=== PATIENT | male | born 1950 | race Caucasian/White ===

== ENCOUNTER 2022-08-27 14:35 | Emergency (ER) | payer MEDICARE, SELFPAY ==
[2022-08-27 14:46] VITALS: BP 178/89; PULSE 51; RESP 20; O2SAT 96; BMI 28.7
[2022-08-27 15:00] VITALS: BP 164/84; PULSE 52; RESP 20; O2SAT 94
--- NOTE | 2022-08-27 15:03 | ED_ITS ---
HPI - Chest Pain General Chief Complaint: Chest Pain Stated Complaint: Thinks he might be having a heart attack Time Seen by Provider: 08/27/22 14:44 History of Present Illness HPI narrative: This 72-year-old male comes in reporting chest pain that began last night and again this morning. He was clearing some [place] thorn last evening and began to have chest pain with exertion. The chest pain was dull and was relieved after resting. He again had chest pain this morning when doing some light to moderate activity. He did have some associated nausea but no vomiting, no lightheadedness, no shortness of breath, and no diaphoresis. Prior to this he has been in good health but has not seen a doctor for a long time. He states that he was on a blood pressure medicine years ago but he quit taking it because it made him cough frequently. He thinks that he probably does have hypertension that is not treated. He denies having any history of smoking or hyperlipidemia. He states that his brother earlier this year from a heart attack. He typically takes a baby aspirin every night. This morning he took 2 baby aspirin. Related Data Previous Rx's Medication Instructions Recorded isosorbide mononitrate 10 mg tablet 10 mg PO BID #60 tabs 08/27/22 Allergies Allergy/AdvReac Type Severity Reaction Status Date / Time No Known Drug Allergies Allergy Verified 08/27/22 14:46 Review of Systems Status of ROS Reports: 10 or more systems reviewed and unremarkable except as noted in History and below Narrative Constitutional: No fevers, no weight gain or loss. Eyes: No discharge. No vision changes. HENT: No congestion, no sore throat, no ear pain. Cardiovascular: No palpitations. Chest pain as described above. Respiratory: No shortness of breath, no wheezes, no cough. Gastrointestinal: No abdominal pain, no vomiting, no diarrhea. Genitourinary: No dysuria, no hematuria. Musculoskeletal: Normal range of motion. Skin: No rashes, no pruritis. Neurological: No dizziness, weakness, sensory change, speech change. Endo/Heme/Allergies: No bruising or bleeding. No polydipsia. Pysch: no suicidality, no anxiety, no insomnia. All other systems reviewed and are negative. PFSH PFSH Social History Smoking Status: Former smoker What tobacco products do you use: cigarettes Years smoked: 20 Smoking quit date/years: >15 years ago Do you use any of these nicotine containing products: Smokeless Tobacco Second hand tobacco smoke exposure: No Non-prescribed substance use: denies use Exam Narrative Exam Narrative: Constitutional: Well-developed, well-nourished, no acute distress. HEENT: Normocephalic, atraumatic. Neck: Normal range of motion. Nontender. Supple. Heart: Regular. No murmurs. Normal rate. Intact distal pulses. Lungs: Clear to auscultation. No chest discomfort. No wheezes, rhonchi, or rales. Abdomen: Normal bowel sounds. Nontender. No rebound tenderness. Genitalia: Deferred. Back: No midline tenderness. Normal range of motion. Extremities: Normal range of motion. No injury. Skin: Intact. No rash. Warm. No erythema or pallor. Neurologic: No altered sensation. No weakness. Alert and oriented. Psychiatric: No suicidality. No anxiety or depression. No insomnia. Nursing notes and vitals signs are reviewed. Const Vital Signs, click to edit/add: Vital Signs - 24 hr 08/27/22 14:46 08/27/22 15:00 Pulse Rate [Left Apical] 51 L 52 L Respiratory Rate 20 20 Blood Pressure [Left Upper Arm] 178/89 H 164/84 H Pulse Oximetry 96 94 Oxygen Delivery Method Room Air Room Air Course Vital Signs Vital signs: Initial Vital Signs Temperature Source Temporal Artery Scan 08/27/22 14:46 Pulse Rate 51 L 08/27/22 14:46 Pulse Rhythm 08/27/22 14:46 Respiratory Rate 20 08/27/22 14:46 Blood Pressure 178/89 H 08/27/22 14:46 Blood Pressure Mean 118 08/27/22 14:46 Pulse Oximetry 96 08/27/22 14:46 Oxygen Delivery Method 08/27/22 14:46 Vital Signs Pulse Rate 51 L 08/27/22 14:46 Respiratory Rate 20 08/27/22 14:46 Blood Pressure 178/89 H 08/27/22 14:46 Pulse Oximetry 96 08/27/22 14:46 Oxygen Delivery Method 08/27/22 14:46 Pulse Rate 52 L 08/27/22 15:00 Respiratory Rate 20 08/27/22 15:00 Blood Pressure 164/84 H 08/27/22 15:00 Pulse Oximetry 94 08/27/22 15:00 Oxygen Delivery Method 08/27/22 15:00 MDM - Chest Pain MDM Narrative Medical decision making narrative: This 72-year-old male comes in with his because of 3 episodes of chest pain that were occurring with respect to [id number] exertion. The chest pain resolved completely when he discontinued these activities. His story is suspicious for coronary artery disease. His EKG and lab results today returned with normal findings. The patient did take 2 baby aspirin this morning any received another 2 baby aspirin here. He is okay to return home but is strongly advised to have a stress echo done soon. I did place an order for this to occur and prescribed Imdur 10 mg b.i.d.. I also advised him to take a full-strength aspirin daily for now. He is encouraged to stay active but if there is any symptoms of angina he should adjust his activity accordingly. Lab Data Labs: Lab Results 08/27/22 08/27/22 08/27/22 Range/Units 14:50 14:50 14:50 WBC 6.39 (4.50-11.00) K/uL RBC 5.57 (4.30-5.90) m/uL Hgb 16.1 (13.5-17.5) gm/dL Hct 49.1 (37.0-53.0) % MCV 88 (80-100) fL MCH 29 (26-34) pg MCHC 33 (32-36) gm/dL RDW Coeff of [place] 12.8 (11.5-15.5) % Plt Count 218 (140-440) K/uL Neut % (Auto) 61.0 (42.0-72.0) % Lymph % (Auto) 25.2 (20-44) % Harding % (Auto) 9.4 (0.0-11.0) % Eos % (Auto) 3.0 (0.0-7.0) % Baso % (Auto) 0.8 (0.0-3.0) % Neut # (Auto) 3.90 (1.7-7.0) K/uL Lymph # (Auto) 1.61 (0.90-2.90) K/uL Harding # (Auto) 0.60 (0.00-0.90) K/UL Eos # (Auto) 0.19 (0.00-0.50) K/uL Baso # (Auto) 0.05 (0.00-0.30) K/uL Abs Immat Gran (auto) 0.04 (0.00-0.30) K/uL Sodium 141 (135-149) mmol/L Potassium 4.1 (3.6-5.1) mmol/L Chloride 105 (96-114) mmol/L Carbon Dioxide 26 (20-32) mmol/L BUN 14 (7-30) mg/dL Creatinine 0.7 (0.5-1.5) mg/dL Estimated Creat Clear 67.93 Estimated GFR 97 ml/min Glucose 80 (60-115) mg/dL Calcium 9.0 (8.4-10.6) mg/dL POC Troponin I 0.00 L (0.01-0.04) ng/ml ECG Data Attestation: I personally reviewed and interpreted this ECG as follows: Interpretation: Sinus bradycardia, rate 55 beats per minute. There are no specific ST or T-wave abnormalities. Discharge Plan Discharge Clinical Impression: Stable angina Patient Disposition: Home, Self-Care Condition: Improved Additional Instructions: Activity as tolerated. Take a full-strength aspirin daily. Take Imdur as prescribed. Follow up this week with stress echocardiogram. Return if worsening. Prescriptions: New isosorbide mononitrate 10 mg tablet 10 mg PO BID Qty: 60 2RF Rx Instructions: give doses 7 hrs apart Follow Up/Referrals: Nguyễn Chowdary MD [Primary Care Provider] - Stand Alone Forms: [employer] Info Instructions
[2022-08-27] MEDS: ASPIRIN 81 MG TAB.CHEW 162 MG PO (15:11)
[2022-08-27 15:13] LABS: Basophils Absolute Auto 0.05 K/uL (0.00-0.30); Basophils Percent Auto 0.8 % (0.0-3.0); Eosinophils Absolute Auto 0.19 K/uL (0.00-0.50); Hematocrit 49.1 % (37.0-53.0); Hemoglobin* 16.1 gm/dL (13.5-17.5); Immature Granulocytes Abs Auto 0.04 K/uL (0.00-0.30); Lymphocytes Absolute Auto 1.61 K/uL (0.90-2.90); Lymphocytes Percent Auto 25.2 % (20-44); Mean Corpuscular HGB Conc 33 gm/dL (32-36); Mean Corpuscular Hemoglobin 29 pg (26-34); Mean Corpuscular Volume 88 fL (80-100); Monocytes Percent Auto 9.4 % (0.0-11.0); Platelet Count* 218 K/uL (140-440); RDW Coefficient of Variation % 12.8 % (11.5-15.5); Red Blood Count 5.57 m/uL (4.30-5.90); White Blood Count* 6.39 K/uL (4.50-11.00)
[2022-08-27 15:14] LABS: Slide Review Reflex No
[2022-08-27 15:24] LABS: Chloride* 105 mmol/L (96-114); Potassium* 4.1 mmol/L (3.6-5.1); Sodium* 141 mmol/L (135-149)
[2022-08-27 15:27] LABS: Carbon Dioxide* 26 mmol/L (20-32); Creatinine* 0.7 mg/dL (0.5-1.5); Est. Creatinine Clearance* 67.93; Estimated Glomerular Filt Rate 97 ml/min
[2022-08-27 15:28] LABS: Blood Urea Nitrogen* 14 mg/dL (7-30); Glucose* 80 mg/dL (60-115)
[2022-08-27 15:30] VITALS: BP 138/66; PULSE 45; RESP 18; O2SAT 95
[2022-08-27 16:00] VITALS: BP 151/79; PULSE 51; RESP 18; O2SAT 97
== END 2022-08-27 16:26 | disposition home or self-care (01) ==
PROVIDERS: Emergency Provider Emergency Medicine Emergency Medical Services; PCP Family Medicine
DX: I20.8 Other forms of angina pectoris (principal)
CPT/HCPCS: 36415; 80048; 85025; 93005; 99284; 99285; A9270

== ENCOUNTER 2022-08-29 06:07 | Emergency (ER) | payer MEDICARE, SELFPAY ==
[2022-08-29] VITALS (30 sets, daily range): BP systolic 133–181; BP diastolic 72–102; PULSE 44–60; RESP 18; TEMP 36.6; O2SAT 94–100
--- NOTE | 2022-08-29 06:39 | ED_ITS ---
HPI - Chest Pain General Chief Complaint: Chest Pain Stated Complaint: Chest pain Time Seen by Provider: 08/29/22 06:08 Source: patient and family Mode of arrival: ambulatory Limitations: no limitations History of Present Illness HPI narrative: decision to transfer 0632 72 y/o male presents with chest pain at rest. see emergency notes from 08/27. At that time, patient was evaluated in the emergency department for chest pain on exertion while [place]. At that time, pain was improving with rest. He was appropriately evaluated in the emergency department. No EKG changes, normal troponins noted. He was discharged with a prescription to start on Imdur and have a follow-up stress echo. 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 Yesterday, he began having intermittent chest pain at rest, nonradiating. Accompanied by a mild feeling of dizziness unwell but no dyspnea on exertion. No syncope. Patient states that the pain has become more constant now and presents to the emergency department again this morning. He has not been taking the Imdur but did take 5 baby aspirin this morning. He does typically take 1 aspirin every night. He has never had stents, bypass surgery, no prior stress test. He does not have a history of hypertension or hyperlipidemia. He takes no prescription medications. Does have a significant family history of coronary artery disease in his brother at age 36. None in his parents or other sibling. He also is a former smoker but quit 15 years ago. No excessive use of alcohol. Past medical history benign, no major long-term health problems. No prior surgeries. No prescription medications, no allergies. Socially nonsmoker, but former smoker. No excessive alcohol, no pertinent travel. Family history notable for coronary artery disease as stated above. Related Data Previous Rx's Medication Instructions Recorded isosorbide mononitrate 10 mg tablet 10 mg PO BID #60 tabs 08/27/22 Allergies Allergy/AdvReac Type Severity Reaction Status Date / Time No Known Drug Allergies Allergy Verified 08/27/22 14:46 PFSH PFS Social History Smoking Status: Former smoker What tobacco products do you use: cigarettes Years smoked: 20 Smoking quit date/years: >15 years ago Do you use any of these nicotine containing products: Smokeless Tobacco Second hand tobacco smoke exposure: No Non-prescribed substance use: denies use Exam Const Vital Signs, click to edit/add: Vital Signs - 24 hr 08/29/22 06:14 08/29/22 06:40 08/29/22 06:26 Temperature 97.8 F Pulse Rate 46 L Pulse Rate [Left Pulse Oximeter] 49 L Respiratory Rate 18 Blood Pressure Blood Pressure [Right Upper Arm] 181/92 H Pulse Oximetry 96 96 99 08/29/22 06:30 08/29/22 06:33 08/29/22 06:45 Temperature Pulse Rate 50 L 60 48 L Pulse Rate [Left Pulse Oximeter] Respiratory Rate Blood Pressure 169/75 H Blood Pressure [Right Upper Arm] Pulse Oximetry 99 100 94 08/29/22 06:47 08/29/22 07:00 08/29/22 07:03 Temperature Pulse Rate 56 L 48 L 47 L Pulse Rate [Left Pulse Oximeter] Respiratory Rate Blood Pressure 133/102 H 157/74 H Blood Pressure [Right Upper Arm] Pulse Oximetry 95 95 95 08/29/22 07:15 08/29/22 07:17 08/29/22 07:30 Temperature Pulse Rate 46 L 52 L 47 L Pulse Rate [Left Pulse Oximeter] Respiratory Rate Blood Pressure 157/79 H Blood Pressure [Right Upper Arm] Pulse Oximetry 96 95 95 08/29/22 07:32 08/29/22 07:45 08/29/22 07:47 Temperature Pulse Rate 51 L 48 L 46 L Pulse Rate [Left Pulse Oximeter] Respiratory Rate Blood Pressure 166/78 H 173/80 H Blood Pressure [Right Upper Arm] Pulse Oximetry 97 96 96 08/29/22 08:00 08/29/22 08:02 08/29/22 08:15 Temperature Pulse Rate 46 L 45 L 45 L Pulse Rate [Left Pulse Oximeter] Respiratory Rate Blood Pressure 165/75 H Blood Pressure [Right Upper Arm] Pulse Oximetry 96 96 96 08/29/22 08:17 08/29/22 08:18 08/29/22 08:30 Temperature Pulse Rate 47 L 44 L 47 L Pulse Rate [Left Pulse Oximeter] Respiratory Rate Blood Pressure 168/79 H Blood Pressure [Right Upper Arm] Pulse Oximetry 96 96 96 08/29/22 08:32 08/29/22 08:45 08/29/22 08:47 Temperature Pulse Rate 47 L 48 L 48 L Pulse Rate [Left Pulse Oximeter] Respiratory Rate Blood Pressure 163/72 H 156/72 H Blood Pressure [Right Upper Arm] Pulse Oximetry 96 96 96 08/29/22 09:00 08/29/22 09:02 08/29/22 09:15 Temperature Pulse Rate 48 L 47 L 49 L Pulse Rate [Left Pulse Oximeter] Respiratory Rate Blood Pressure 165/78 H Blood Pressure [Right Upper Arm] Pulse Oximetry 97 96 97 08/29/22 09:17 08/29/22 09:30 08/29/22 09:32 Temperature Pulse Rate 46 L 49 L 49 L Pulse Rate [Left Pulse Oximeter] Respiratory Rate Blood Pressure 164/81 H 168/79 H Blood Pressure [Right Upper Arm] Pulse Oximetry 96 97 97 Documenting provider has reviewed patient's vital signs: yes Common normals: no apparent distress and alert General appearance: cooperative, comfortable and well kempt Orientation/consciousness: Yes awake HENMT Common normals: normocephalic Head and scalp: normocephalic Mouth: oral and palatal mucosa normal Throat: posterior oropharynx normal Eye Common normals: conjunctivae normal and no scleral icterus General eye: normal appearance of both eyes Conjunctiva: conjunctiva(e) normal Neck & C-Spine Common normals: full ROM and thyroid normal Thyroid: thyroid normal Resp Common normals: normal respiratory effort and clear to auscultation bilaterally Effort & inspection: able to speak in complete sentences Auscultation: clear to auscultation bilaterally Cardio Common normals: regular rate, regular rhythm, S1 normal heart sound, S2 normal heart sound, no murmurs and peripheral pulses 2+ throughout Rate: regular rate Rhythm: regular rhythm Heart sounds: S1 normal and S2 normal Peripheral pulses: pulses 2+ throughout GI Common normals: Normal to inspection, nondistended, normoactive bowel sounds present, soft to palpation, non-tender and no hepatosplenomegaly Palpation: soft and no hepatosplenomegaly Back & Pelvis Common normals: thoracic and lumbar spine normal to inspection Extremity Common normals: normal capillary refill and no clubbing, cyanosis or edema Neuro Sensorium/orientation: awake and alert Speech: speech normal Gait (neuro): normal gait Motor exam: strength 5/5 throughout, no tremor noted and no movement abnormalities noted Psych Appearance: well kempt Attitude: engaged Activity/motor behavior: appropriate eye contact Mood and affect: euthymic mood Insight: insight good Judgement: judgment good Skin Common normals: no rashes or lesions noted General skin exam: no rashes or lesions noted Course Vital Signs Vital signs: Initial Vital Signs Temperature 97.8 F 08/29/22 06:14 Temperature Source Temporal Artery Scan 08/29/22 06:14 Pulse Rate 49 L 08/29/22 06:14 Pulse Rhythm 08/29/22 06:14 Respiratory Rate 18 08/29/22 06:14 Blood Pressure 181/92 H 08/29/22 06:14 Blood Pressure Mean 121 08/29/22 06:14 Blood Pressure Position Sitting 08/29/22 06:14 Pulse Oximetry 96 08/29/22 06:14 Vital Signs Temperature 97.8 F 08/29/22 06:14 Pulse Rate 49 L 08/29/22 06:14 Respiratory Rate 18 08/29/22 06:14 Blood Pressure 181/92 H 08/29/22 06:14 Pulse Oximetry 96 08/29/22 06:14 Temperature 97.8 F 08/29/22 06:14 Pulse Rate 49 L 08/29/22 09:32 Respiratory Rate 18 08/29/22 06:14 Blood Pressure 168/79 H 08/29/22 09:32 Pulse Oximetry 97 08/29/22 09:32 MDM - Chest Pain MDM Narrative Medical decision making narrative: EKG viewed on arrival. On an comes back as I am examining patient, noted to be elevated at 0.18. The patient's story has evolved from stable angina to unstable angina and with positive troponins, I do believe he is having a non- STEMI. I discussed transfer with patient immediately and have begun making called for transfer. Thus far, [facility] has put on weight loss. I have called [facility]. We are wait listed as well. Thus far, I have spent 37 minutes attempting to transfer to 2 facilities. This is the reason for his transfer delay. Of [facility], Dr. Toledo, has recommended beginning heparin drip and nitroglycerin drip. When I went to reassess the patient and discuss these 2 interventions, his chest pain has at the moment resolved. We will place a 2nd IV and have a nitroglycerin drip ready to go in case his chest pain returns. As stated, he has already had his aspirin I will not re-dose this. Dr. Toledo is not recommending additional Plavix or statins at this time. Blood pressures are remaining stable. Awaiting callback for transfer. Lab Data Labs: Lab Results 08/29/22 08/29/22 08/29/22 Range/Units 06:20 06:20 06:20 WBC 8.03 (4.50-11.00) K/uL RBC 6.09 H (4.30-5.90) m/uL Hgb 17.6 H (13.5-17.5) gm/dL Hct 53.6 H (37.0-53.0) % MCV 88 (80-100) fL MCH 29 (26-34) pg MCHC 33 (32-36) gm/dL RDW Coeff of [place]oul[place] 12.8 (11.5-15.5) % Plt Count 238 (140-440) K/uL Neut % (Auto) 62.6 (42.0-72.0) % Lymph % (Auto) 25.0 (20-44) % Jackson % (Auto) 9.7 (0.0-11.0) % Eos % (Auto) 2.1 (0.0-7.0) % Baso % (Auto) 0.5 (0.0-3.0) % Neut # (Auto) 5.02 (1.7-7.0) K/uL Lymph # (Auto) 2.01 (0.90-2.90) K/uL Jackson # (Auto) 0.80 (0.00-0.90) K/UL Eos # (Auto) 0.17 (0.00-0.50) K/uL Baso # (Auto) 0.04 (0.00-0.30) K/uL Abs Immat Gran (auto) 0.01 (0.00-0.30) K/uL INR (0.91-1.10) APTT (23-33) Seconds Sodium 140 (135-149) mmol/L Potassium 4.4 (3.6-5.1) mmol/L Chloride 105 (96-114) mmol/L Carbon Dioxide 28 (20-32) mmol/L BUN 18 (7-30) mg/dL Creatinine 0.9 (0.5-1.5) mg/dL Estimated GFR 90 ml/min Glucose 110 (60-115) mg/dL Calcium 9.1 (8.4-10.6) mg/dL Troponin I 0.33 H* (0.01-0.04) ng/mL NT-Pro-B Natriuret Pep 117 (0-125) PG/mL SARS-CoV-2 (PCR) (Negative) POC Troponin I 0.18 H (0.01-0.04) ng/ml 08/29/22 08/29/22 Range/Units 06:20 06:47 WBC (4.50-11.00) K/uL RBC (4.30-5.90) m/uL Hgb (13.5-17.5) gm/dL Hct (37.0-53.0) % MCV (80-100) fL MCH (26-34) pg MCHC (32-36) gm/dL RDW Coeff of [place] (11.5-15.5) % Plt Count (140-440) K/uL Neut % (Auto) (42.0-72.0) % Lymph % (Auto) (20-44) % Jackson % (Auto) (0.0-11.0) % Eos % (Auto) (0.0-7.0) % Baso % (Auto) (0.0-3.0) % Neut # (Auto) (1.7-7.0) K/uL Lymph # (Auto) (0.90-2.90) K/uL Jackson # (Auto) (0.00-0.90) K/UL Eos # (Auto) (0.00-0.50) K/uL Baso # (Auto) (0.00-0.30) K/uL Abs Immat Gran (auto) (0.00-0.30) K/uL INR 0.98 (0.91-1.10) APTT 29 (23-33) Seconds Sodium (135-149) mmol/L Potassium (3.6-5.1) mmol/L Chloride (96-114) mmol/L Carbon Dioxide (20-32) mmol/L BUN (7-30) mg/dL Creatinine (0.5-1.5) mg/dL Estimated GFR ml/min Glucose (60-115) mg/dL Calcium (8.4-10.6) mg/dL Troponin I (0.01-0.04) ng/mL NT-Pro-B Natriuret Pep (0-125) PG/mL SARS-CoV-2 (PCR) Negative SARS-CoV-2 (Negative) POC Troponin I (0.01-0.04) ng/ml ECG Data Attestation: I personally reviewed and interpreted this ECG as follows: Prior ECG tracings: available for review (From 08/27) Interpretation: Mild sinus bradycardia with poor R-wave progression. No obvious ischemic c changes, normal ST and T-wave segments. Normal axis. Discharge Plan Discharge Prescriptions: No Action isosorbide mononitrate 10 mg tablet 10 mg PO BID Qty: 60 2RF Rx Instructions: give doses 7 hrs apart Follow Up/Referrals: Nguyễn Chowdary MD [Primary Care Provider] -
[2022-08-29 06:43] LABS: Troponin, Point-of-Care* 0.18 ng/ml (0.01-0.04)
[2022-08-29 06:50] LABS: Basophils Absolute Auto 0.04 K/uL (0.00-0.30); Basophils Percent Auto 0.5 % (0.0-3.0); Eosinophils Absolute Auto 0.17 K/uL (0.00-0.50); Eosinophils Percent Auto 2.1 % (0.0-7.0); Hematocrit 53.6 % (37.0-53.0); Hemoglobin* 17.6 gm/dL (13.5-17.5); Immature Granulocytes Abs Auto 0.01 K/uL (0.00-0.30); Lymphocytes Absolute Auto 2.01 K/uL (0.90-2.90); Mean Corpuscular HGB Conc 33 gm/dL (32-36); Mean Corpuscular Hemoglobin 29 pg (26-34); Mean Corpuscular Volume 88 fL (80-100); Monocytes Percent Auto 9.7 % (0.0-11.0); Neutrophils Absolute Auto 5.02 K/uL (1.7-7.0); Neutrophils Percent Auto 62.6 % (42.0-72.0); Platelet Count* 238 K/uL (140-440); RDW Coefficient of Variation % 12.8 % (11.5-15.5); Red Blood Count 6.09 m/uL (4.30-5.90); White Blood Count* 8.03 K/uL (4.50-11.00)
[2022-08-29 06:52] LABS: Slide Review Reflex No
[2022-08-29 07:03] LABS: Chloride* 105 mmol/L (96-114)
[2022-08-29 07:04] LABS: Potassium* 4.4 mmol/L (3.6-5.1); Sodium* 140 mmol/L (135-149)
[2022-08-29 07:06] LABS: Creatinine* 0.9 mg/dL (0.5-1.5); Estimated Glomerular Filt Rate 90 ml/min
[2022-08-29 07:07] LABS: Blood Urea Nitrogen* 18 mg/dL (7-30); Calcium* 9.1 mg/dL (8.4-10.6); Carbon Dioxide* 28 mmol/L (20-32); Glucose* 110 mg/dL (60-115)
[2022-08-29] MEDS: HEPARIN 5,000 UNIT/0.5 ML INJ 4000 UNIT IVP (07:10)
[2022-08-29] MEDS: HEPARIN 25,000 UNIT/500 ML BAG 20 UNIT IV (07:10)
[2022-08-29 07:16] LABS: NT Pro B Type NatriureticPept* 117 PG/mL (0-125)
[2022-08-29 07:23] LABS: Troponin I* 0.33 ng/mL (0.01-0.04)
[2022-08-29 07:51] LABS: SARS PCR* Negative SARS-CoV-2 (Negative)
[2022-08-29 07:58] LABS: INR 0.98 (0.91-1.10); Prothrombin Time 13.6 Seconds
[2022-08-29 07:59] LABS: Partial Thromboplastin Time* 29 Seconds (23-33)
--- NOTE | 2022-08-29 08:16 | ED.NURSE ---
pt resting in bed, denies pain at this time. will call if pain returns. waiting for bed at [facility], pt is on waiting list with anticipated wait time 4-6 hours.
--- NOTE | 2022-08-29 09:38 | ED.NURSE ---
report given to margie at [place]. pt will transfer to [facility] at [place] via [facility]. [facility] paged. pt resting in bed, continues to be painfree. at bedside.
--- NOTE | 2022-08-29 10:08 | ED.NURSE ---
pt transferred to [facility] via [facility]
== END 2022-08-29 10:13 | disposition home or self-care (01) ==
PROVIDERS: Emergency Provider Family Medicine; PCP Family Medicine
DX: I20.8 Other forms of angina pectoris (principal)
CPT/HCPCS: 36415; 80048; 83880; 84484; 85025; 85610; 85730; 87635; 93005; 94761; 99285; J1644

== ENCOUNTER 2022-08-29 09:54 | Outpatient (CLI) | payer MEDICARE, SELFPAY | END 2022-08-29 09:55 | disposition home or self-care (01) | LOC: AMB 09-13 13:44 | PROVIDERS: PCP Family Medicine; Visit Provider Family Medicine | DX: R07.89 Other chest pain (principal) | CPT/HCPCS: A0425; A0426 ==